=== PATIENT | male | born 1990 | race Caucasian/White ===

== ENCOUNTER 2016-07-30 06:11 | Emergency (ER) | payer SELFPAY ==
[~2016-07-30] VITALS: Ht 190.5 cm; Wt 117.9 kg
--- OUTSIDE RECORDS SUMMARY | 2016-07-30 06:21 | XMS REPORT ---
Author Author STACY VIRK Organization [employer] Address Unknown Phone Unavailable Care Team Providers Care Mail Carrier And Clerk Name Role Phone STACY VIRK CP Unavailable Allergies, Adverse Reactions, Alerts Substance Reaction Event Type N.K.D.A. Info Not Available Non Drug Allergy Problems Problem Type Condition ICD-9 Code Onset Dates Condition Status Assessment Anxiety 300.00 Active Assessment Depression 311 Active Medications Medication Code System Code Instructions Start Date End Date Status Dosage Lexapro [facility] [address]-74 10 MG Orally Once a day Feb 19, 2015 1 tablet Procedures Procedure Coding System Code Date Office Visit, Est Pt., Level 5 CPT-4 90293 Feb 19, 2015 Vital Signs Date/Time: Feb 19, 2015 Temperature 98.6 F Weight 222.9 lbs Height 75.2 in BMI 27.71 Index Blood Pressure Diastolic 85 mmHg Blood Pressure Systolic 165 mmHg Cardiac Monitoring Heart Rate 100 bpm Results No Known Results Summary Purpose [employer] Submission
[2016-07-30 06:48] LABS: BASOPHILS % (AUTO) 0 % (0-10); EOSINOPHILS # (AUTO) 0.1 10^3/uL (0.0-0.3); EOSINOPHILS % (AUTO) 1 % (0-10); LYMPHOCYTES # (AUTO) 1.8 X 10^3 (1.0-4.0); LYMPHOCYTES % (AUTO) 12 % (12-44); MEAN CORPUSCULAR HEMOGLOBIN 31 PG (25-34); MEAN CORPUSCULAR HGB CONC 36 G/DL (32-36); MEAN CORPUSCULAR VOLUME 86 FL (80-99); MEAN PLATELET VOLUME 9.7 FL (7.4-10.4); MONOCYTES # (AUTO) 1.4 X 10^3 (0.0-1.0); MONOCYTES % (AUTO) 10 % (0-12); NEUTROPHILS # (AUTO) 11.1 X 10^3 (1.8-7.8); NEUTROPHILS % (AUTO) 77 % (42-75); PLATELET COUNT 284 10^3/uL (130-400); RED BLOOD COUNT 5.27 10^6/uL (4.35-5.85); RED CELL DISTRIBUTION WIDTH 12.9 % (10.0-14.5); WHITE BLOOD COUNT 14.3 10^3/uL (4.3-11.0)
[2016-07-30 07:04] LABS: ALANINE AMINOTRANSFERASE 18 U/L (0-55); ALBUMIN 4.7 G/DL (3.2-4.5); ANION GAP 14 MMOL/L (5-14); ASPARTATE AMINO TRANSFERASE 17 U/L (5-34); BILIRUBIN,TOTAL 0.5 MG/DL (0.1-1.0); BLOOD UREA NITROGEN 9 MG/DL (7-18); BUN/CREATININE RATIO 9; CALCIUM 9.9 MG/DL (8.5-10.1); CARBON DIOXIDE 22 MMOL/L (21-32); CHLORIDE 106 MMOL/L (98-107); CREATININE SERUM 0.95 MG/DL (0.60-1.30); GFR ESTIMATED > 60; GLUCOSE 87 MG/DL (70-105); POTASSIUM 3.9 MMOL/L (3.6-5.0); SODIUM 142 MMOL/L (135-145); TOTAL PROTEIN 7.3 G/DL (6.4-8.2)
--- NOTE | 2016-07-30 07:18 | ED Integumentary General ---
General Chief Complaint: Skin/Wound Problems Stated Complaint: LUMP ON RT SIDE OF NECK Nursing Triage Note: PT HAS POSS ABSCESS TO RT NECK BELOW EAR ONSET X2-3 DAYS, WORSE THIS AM. DENIES INJURY Source: patient Exam Limitations: no limitations History of Present Illness Time seen by provider: 07:13 Initial Comments The patient is a 26-year-old white male who reports that 2-3 days ago he began to have an area of swelling and tenderness below the right year and at about the angle of the mandible. This is seemed to get worse. He now fears of abscess. He doesn't have any dental complaints although he has not seen a dentist in some years. There is no particular pain when chewing. He has not noted a fever or chills. Timing/Duration: week Location: face Possible Cause: no cause identified Associated Symptoms: change in skin texture Allergies and Home Medications Allergies Coded Allergies: No Known Drug Allergies (Unverified , 07/30/16) Home Medications No Active Prescriptions or Reported Meds Constitutional: see HPI EENTM: ear pain Respiratory: no symptoms reported Cardiovascular: no symptoms reported Gastrointestinal: no symptoms reported Genitourinary: no symptoms reported Musculoskeletal: no symptoms reported Skin: no symptoms reported Psychiatric/Neurological: No Symptoms Reported Endocrine: No Symptoms Reported Hematologic/Lymphatic: No Symptoms Reported Past Ppgcngj-Fynpeh-Wbvcvr Hx Patient Social History Alcohol Use: Denies Use Recreational Drug Use: No Smoking Status: Never a Smoker Type Used: Smokeless Tobacco Recent Foreign Travel: No Contact w/Someone Who Travel: No Recent Infectious Disease Expo: No Recent Hopitalizations: No Surgeries HX Surgeries: No Respiratory Hx Respiratory Disorders: No Cardiovascular Hx Cardiac Disorders: No Neurological Hx Neurological Disorders: No Reproductive System Hx Reproductive Disorders: No Genitourinary Hx Genitourinary Disorders: No Gastrointestinal Hx Gastrointestinal Disorders: No Musculoskeletal Hx Musculoskeletal Disorders: No Endocrine Hx Endocrine Disorders: No HEENT HX ENT Disorders: No Cancer Hx Cancer: No Psychosocial Hx Psychiatric Problems: No Integumentary HX Skin/Integumentary Disorder: No Blood Transfusions Hx Blood Disorders: No Physical Exam Vital Signs Vital Sign - Last 12Hours 07/30/16 06:23 Temp 100.1 Pulse 99 Resp 20 B/P 190/122 Pulse Ox 98 O2 Delivery Room Air Capillary Refill : Less Than 3 Seconds General Appearance: mild distress HEENT: other (dentition appears unremarkable) Neck: other (tender poorly defined area at right angle of mandible which does not appear to be fluctuant) Cardiovascular: normal peripheral pulses regular rate, rhythm no edema no gallop no JVD no murmur Respiratory: chest non-tender lungs clear normal breath sounds no respiratory distress no accessory muscle use Progress/Results/Core Measures Results/Orders Lab Results Laboratory Tests Test 07/30/16 06:30 Range/Units Alanine Aminotransferase (ALT/SGPT) 18 0-55 U/L Albumin 4.7 H 3.2-4.5 G/DL Alkaline Phosphatase 90 40-136 U/L Anion Gap 14 5-14 MMOL/L Aspartate Amino Transf (AST/SGOT) 17 5-34 U/L BUN/Creatinine Ratio 9 Band Neutrophils 0 % Basophils # (Auto) 0.0 0.0-0.1 10^3/uL Basophils % (Manual) 0 % Basophils (%) (Auto) 0 0-10 % Blood Morphology Comment NORMAL Blood Urea Nitrogen 9 7-18 MG/DL Calcium Level 9.9 8.5-10.1 MG/DL Carbon Dioxide Level 22 21-32 MMOL/L Chloride Level 106 98-107 MMOL/L Creatinine 0.95 0.60-1.30 MG/DL Eosinophils # (Auto) 0.1 0.0-0.3 10^3/uL Eosinophils % (Manual) 1 % Eosinophils (%) (Auto) 1 0-10 % Estimat Glomerular Filtration Rate > 60 Glucose Level 87 70-105 MG/DL Hematocrit 45 40-54 % Hemoglobin 16.4 13.3-17.7 G/DL Lymphocytes # (Auto) 1.8 1.0-4.0 X 10^3 Lymphocytes % (Manual) 6 % Lymphocytes (%) (Auto) 12 12-44 % Mean Corpuscular Hemoglobin 31 25-34 PG Mean Corpuscular Hemoglobin Concent 36 32-36 G/DL Mean Corpuscular Volume 86 80-99 FL Mean Platelet Volume 9.7 7.4-10.4 FL Monocytes # (Auto) 1.4 H 0.0-1.0 X 10^3 Monocytes % (Manual) 10 % Monocytes (%) (Auto) 10 0-12 % Neutrophils # (Auto) 11.1 H 1.8-7.8 X 10^3 Neutrophils % (Manual) 83 % Neutrophils (%) (Auto) 77 H 42-75 % Platelet Count 284 130-400 10^3/uL Potassium Level 3.9 3.6-5.0 MMOL/L Red Blood Count 5.27 4.35-5.85 10^6/uL Red Cell Distribution Width 12.9 10.0-14.5 % Sodium Level 142 135-145 MMOL/L Total Bilirubin 0.5 0.1-1.0 MG/DL Total Protein 7.3 6.4-8.2 G/DL White Blood Count 14.3 H 4.3-11.0 10^3/uL My Orders Orders-JONES LEE MD Cbc With Automated Diff (07/30/16 06:26) Comprehensive Metabolic Panel (07/30/16 06:26) Manual Differential (07/30/16 06:30) Ct Neck (Soft Tissue) W (07/30/16 07:06) Iohexol Injection (Omnipaque 350 Mg/Ml 1 (07/30/16 07:45) Sodium Chloride Flush (Catheter Flush Sy (07/30/16 07:45) Ns (Ivpb) (Sodium Chloride 0.9% Ivpb Bag (07/30/16 07:45) Clindamycin 900 Mg/50 Ml Ivpb (Cleocin P (07/30/16 08:30) Medications Given in ED Current Medications Medications Dose Ordered Sig/Corey Route Start Time Stop Time Status Last Admin Dose Admin Clindamycin Phosphate/Dextrose 50 ml @ 100 mls/hr ONCE ONCE IV 07/30/16 08:30 07/30/16 08:59 07/30/16 08:34 100 MLS/HR Iohexol 75 ml ONCE ONCE IV 07/30/16 07:45 07/30/16 07:46 DC 07/30/16 07:47 75 ML Sodium Chloride 100 ml 100 ml ONCE ONCE IV 07/30/16 07:45 07/30/16 07:46 DC 07/30/16 07:47 80 ML Vital Signs/I&O Vital Sign - Last 12Hours 07/30/16 06:23 Temp 100.1 Pulse 99 Resp 20 B/P 190/122 Pulse Ox 98 O2 Delivery Room Air Blood Pressure Mean: 144 Departure Communication Progress Notes Dr. Mei called from radiology to discuss CT findings. The swelling appears to be the distal portion of the right parotid gland. Of particular interest are multiple small air bubbles within the gland suggesting a bacterial infection. [address] Brandt who was scrubbed in in the OR surgery. He recommended Cleocin and would see him in the office the first of the week for further examination Impression Impression: Primary Impression: bacterial parotitis Disposition: HOME, SELF-CARE Condition: Stable/Unchanged Departure-Patient Inst. Decision time for Depature: 08:51 Referrals: MATTHIEU ANDERSON MD (PCP/Family) Primary Care Physician Add. Discharge Instructions: All discharge instructions reviewed with patient and/or family. Voiced understanding Use ibuprofen 6-800 mg 3 times daily for pain. Experimental with ice packs versus warm packs for additional comfort. Take Cleocin as directed If increasing symptoms return to emergency room Call Dr. Brandt's office for an appointment next Wednesday. The number is [phone] Scripts Clindamycin HCl (Cleocin HCl)300 Mg [id number] Mg PO 3 times a day #20 CAP Prov:JONES LEE MD 07/30/16 JONES LEE MD Jul 30, 2016 07:18
[2016-07-30 07:19] LABS: BAND NEUTROPHILS 0 %; BASOPHILS % (MANUAL) 0 %; EOSINOPHILS % (MANUAL) 1 %; LYMPHOCYTES % (MANUAL) 6 %; NEUTROPHILS % (MANUAL) 83 %
[2016-07-30] MEDS ORDERED: CATHETER FLUSH 10 ML SYR IV PRN (07:45)
[2016-07-30] MEDS ORDERED: NS 100 ML (IVPB) BAG IV ONE (07:45)
[2016-07-30] MEDS ORDERED: IOHEXOL 350 MG/ML 100 ML (OMNIPAQUE 350) VIAL IV ONE (07:45)
[2016-07-30] MEDS ORDERED: CLINDAMYCIN 900 MG/50 ML IVPB 50 ML IV ONE (08:30)
--- NOTE | 2016-07-30 08:41 | Diagnostic Imaging Report ---
PROCEDURE: CT neck soft tissue with contrast. TECHNIQUE: Multiple contiguous axial images were obtained through the neck after the administration of contrast. INDICATION: Fever for 2 days. Joint swelling. FINDINGS: There is asymmetric swelling of the right parotid gland with surrounding inflammation and thickening of the overlying fascia. There is subcutaneous deep tissue edema at this level. There is also air density in a branching pattern within the right parotid gland and in the parotid duct. This could be secondary to bacterial infection or less likely retrograde air coming from the oral cavity. If there hasn't been a procedure performed or dilatation to the orifice of the parotid duct, then the source of air is probably an intrinsic bacterial infection. There is complete opacification of the right maxillary sinus, opacification of the anterior and middle right ethmoidal air cells, large opacification of the left sphenoidal sinus and partial opacification of the frontal sinuses bilaterally. There is mild lymphoid hyperplasia in the oropharynx, tonsillar region and the adenoids. There is no abscess. The inflammatory changes however with the fat stranding is seen to extend to the right parapharyngeal space. There is no significant lymphadenopathy. Thyroid gland appear unremarkable. The submandibular glands appear unremarkable. The lung apices appear clear. The osseous structures show mild mid cervical spine degenerative change. IMPRESSION: 1. Swelling and inflammatory changes around the right parotid gland with air density seen in the parotid ducts is likely secondary to right bacterial parotitis. The inflammation extends medially to the peritonsillar and parapharyngeal space with no fluid collection or abscess. 2. Prominent mucosal thickening in the paranasal sinuses may relate to current or prior sinusitis. Findings were discussed with Dr. Schwab at time of dictation. Dictated by: Dictated on workstation # [id number]
[2016-07-30] MEDS ORDERED: CLIN300C3 PO (08:55)
[2016-07-30 09:17] VITALS: BP 145/88
== END 2016-07-30 09:17 | disposition home or self-care (01) ==
LOC: EDUNIT# 06:11 → ER 06:16
DX: K11.21 Acute sialoadenitis (principal)
CPT/HCPCS: 36415; 70491; 80053; 85007; 85027; 96365

== ENCOUNTER 2018-09-20 11:14 | Emergency (ER) | payer SELFPAY ==
[~2018-09-20] VITALS: Ht 190.5 cm; Wt 117.0 kg
[~2018-09-20 11:14] MED LIST changes: -AMLO5TAB4 PO
--- NOTE | 2018-09-20 11:51 | ED Cardiac General ---
History of Present Illness General Chief Complaint: Cardiac/General Problems Stated Complaint: HIGH BP Nursing Triage Note: ARRIVED VIA AMB TO ROOM 07 WITH COMPLAINTS OF HYPERTENSION AFTER BEING CHECKED AT WORK. STATES HE HAS HAD IT IN THE PAST BUT IT WENT DOWN AFTER HE LOST WEIGHT. SCHEDULED TO SEE HIS DR TOMORROW. Source: patient, family, RN notes reviewed Exam Limitations: no limitations History of Present Illness Date Seen by Provider: Sep 20, 2018 Time Seen by Provider: 11:51 Initial Comments Patient presents c/ family c/ c/o his BP is really high. Apparently was checked @ work and sent here for evaluation. States his BP is always high. Use to be on something for it but got off it when he lost weight. Can't remember what he was previously on. Been sometime ago. Denies any associated symptoms, i.e. chest pain, dyspnea, etc. Location: other (denies an pain) Activities at Onset: none Prior CP/Workup: no prior chest pain, no prior cardiac workup Modifying Factors: improves with other (none) NTG SL SENSITIZER: No ASA po SENSITIZER: No Associated Systoms: Denies Symptoms Allergies and Home Medications Allergies Coded Allergies: No Known Drug Allergies (Unverified , 07/30/16) Home Medications Amlodipine Besylate 5 Mg Tablet, 5 MG PO DAILY Prescribed by: SALENA DODGE on 09/20/18 1308 Past Psasyax-Hymobn-Cpulqw Hx Patient Social History Type Used: Smokeless Tobacco Recent Foreign Travel: No Contact w/Someone Who Travel: No Recent Infectious Disease Expo: No Recent Hopitalizations: No Past Medical History Surgeries: No Respiratory: No Cardiac: Yes Hypertension Neurological: No Reproductive Disorders: No Genitourinary: No Gastrointestinal: No Musculoskeletal: No Endocrine: No Cancer: No Did You Recieve Any Treatments: No Psychosocial: No Integumentary: No Blood Disorders: No Physical Exam Vital Signs Vital Signs - First Documented 09/20/18 11:36 Temp 98.0 Pulse 84 Resp 16 B/P (MAP) 203/104 (137) Pulse Ox 98 O2 Delivery Room Air Capillary Refill : Less Than 3 Seconds Height, Weight, BMI Height: 6'3.00" Weight: 258lbs. oz. 117.437541wx; BMI Method:Stated Progress/Results/Core Measures Results/Orders Lab Results Laboratory Tests Test 09/20/18 12:08 4/23/19 12:17 Range/Units Urine Color YELLOW Urine Clarity SLIGHTLY CLOUDY Urine pH 7 5-9 Urine Specific [place] 1.005 L 1.016-1.022 Urine Protein NEGATIVE NEGATIVE Urine Glucose (UA) NEGATIVE NEGATIVE Urine Ketones NEGATIVE NEGATIVE Urine Nitrite NEGATIVE NEGATIVE Urine Bilirubin NEGATIVE NEGATIVE Urine Urobilinogen NORMAL NORMAL MG/DL Urine Leukocyte Esterase NEGATIVE NEGATIVE Urine RBC (Auto) NEGATIVE NEGATIVE Urine RBC RARE /HPF Urine WBC NONE /HPF Urine Squamous Epithelial Cells 0-2 /HPF Urine Crystals NONE /LPF Urine Bacteria NEGATIVE /HPF Urine Casts NONE /LPF Urine Mucus NEGATIVE /LPF Urine Culture Indicated NO White Blood Count 12.4 H 4.3-11.0 10^3/uL Red Blood Count 4.81 4.35-5.85 10^6/uL Hemoglobin 15.4 13.3-17.7 G/DL Hematocrit 43 40-54 % Mean Corpuscular Volume 90 80-99 FL Mean Corpuscular Hemoglobin 32 25-34 PG Mean Corpuscular Hemoglobin Concent 36 32-36 G/DL Red Cell Distribution Width 12.5 10.0-14.5 % Platelet Count 248 130-400 10^3/uL Mean Platelet Volume 9.2 7.4-10.4 FL Neutrophils (%) (Auto) 76 H 42-75 % Lymphocytes (%) (Auto) 14 12-44 % Monocytes (%) (Auto) 10 0-12 % Eosinophils (%) (Auto) 1 0-10 % Basophils (%) (Auto) 0 0-10 % Neutrophils # (Auto) 9.4 H 1.8-7.8 X 10^3 Lymphocytes # (Auto) 1.7 1.0-4.0 X 10^3 Monocytes # (Auto) 1.2 H 0.0-1.0 X 10^3 Eosinophils # (Auto) 0.1 0.0-0.3 10^3/uL Basophils # (Auto) 0.0 0.0-0.1 10^3/uL Sodium Level 142 135-145 MMOL/L Potassium Level 4.0 3.6-5.0 MMOL/L Chloride Level 106 98-107 MMOL/L Carbon Dioxide Level 28 21-32 MMOL/L Anion Gap 8 5-14 MMOL/L Blood Urea Nitrogen 14 7-18 MG/DL Creatinine 0.88 0.60-1.30 MG/DL Estimat Glomerular Filtration Rate > 60 BUN/Creatinine Ratio 16 Glucose Level 80 70-105 MG/DL Calcium Level 10.8 H 8.5-10.1 MG/DL Corrected Calcium 8.5-10.1 MG/DL Magnesium Level 2.2 1.8-2.4 MG/DL Total Bilirubin 0.6 0.1-1.0 MG/DL Aspartate Amino Transf (AST/SGOT) 20 5-34 U/L Alanine Aminotransferase (ALT/SGPT) 22 0-55 U/L Alkaline Phosphatase 55 40-136 U/L Total Protein 7.2 6.4-8.2 GM/DL Albumin 4.7 H 3.2-4.5 GM/DL My Orders Orders - SALENA DODGE DO Chest 1 View, Ap/Pa Only (09/20/18 11:54) Ekg Tracing (09/20/18 11:54) Ed Iv/Invasive Line Start (09/20/18 11:54) Cbc With Automated Diff (09/20/18 11:54) Comprehensive Metabolic Panel (09/20/18 11:54) Magnesium (09/20/18 11:54) Ua Culture If Indicated (09/20/18 11:54) Amlodipine Tablet (Norvasc Tablet) (09/20/18 12:00) Hydralazine Injection (Apresoline Inject (09/20/18 12:00) Hydralazine Injection (Apresoline Inject (09/20/18 13:00) Medications Given in ED Current Medications Medications Dose Ordered Sig/Corey Route Start Time Stop Time Status Last Admin Dose Admin Amlodipine Besylate 5 mg ONCE ONCE PO 09/20/18 12:00 09/20/18 12:18 DC 09/20/18 12:21 5 MG Hydralazine HCl 10 mg ONCE ONCE IV 09/20/18 12:00 09/20/18 12:18 DC 09/20/18 12:23 10 MG Hydralazine HCl 10 mg ONCE ONCE IV 09/20/18 13:00 09/20/18 13:01 DC 09/20/18 13:04 10 MG Vital Signs/I&O 09/20/18 11:36 Temp 98.0 Pulse 84 Resp 16 B/P (MAP) 203/104 (137) Pulse Ox 98 O2 Delivery Room Air Blood Pressure Mean: 137 Departure Impression Primary Impression: Hypertensive urgency Disposition: 01 HOME, SELF-CARE Condition: Improved Departure-Patient Inst. Decision time for Depature: 13:34 Referrals: MATTHIEU ANDERSON MD (PCP/Family) Primary Care Physician Patient Instructions: High Blood Pressure in Adults Scripts Amlodipine Besylate (Norvasc) 5 Mg Tablet 5 MG PO DAILY, #30 TAB 0 Refills Prov: SALENA DODGE DO 09/20/18 SALENA DODGE DO Sep 20, 2018 11:51
[2018-09-20] MEDS ORDERED: hydrALAZINE (APESOLINE) 20 MG/ML VIAL IV ONE ×2 (12:00→13:00)
[2018-09-20] MEDS ORDERED: amLODIPine 5 MG (NORVASC) TAB PO ONE (12:00)
[2018-09-20 12:15] LABS: BILIRUBIN,URINE NEGATIVE (NEGATIVE); CLARITY,URINE SLIGHTLY CLOUDY; COLOR,URINE YELLOW; GLUCOSE, URINE (UA) NEGATIVE (NEGATIVE); KETONES,URINE NEGATIVE (NEGATIVE); LEUKOCYTE ESTERASE ,URINE NEGATIVE (NEGATIVE); NITRITE,URINE NEGATIVE (NEGATIVE); PH,URINE 7 (5-9); PROTEIN,URINE NEGATIVE (NEGATIVE); UROBILINOGEN,URINE NORMAL (NORMAL)
[2018-09-20 12:22] LABS: BASOPHILS % (AUTO) 0 % (0-10); EOSINOPHILS # (AUTO) 0.1 10^3/uL (0.0-0.3); EOSINOPHILS % (AUTO) 1 % (0-10); HEMATOCRIT 43 % (40-54); HEMOGLOBIN 15.4 G/DL (13.3-17.7); LYMPHOCYTES # (AUTO) 1.7 X 10^3 (1.0-4.0); LYMPHOCYTES % (AUTO) 14 % (12-44); MEAN CORPUSCULAR HEMOGLOBIN 32 PG (25-34); MEAN CORPUSCULAR HGB CONC 36 G/DL (32-36); MEAN CORPUSCULAR VOLUME 90 FL (80-99); MEAN PLATELET VOLUME 9.2 FL (7.4-10.4); MONOCYTES # (AUTO) 1.2 X 10^3 (0.0-1.0); MONOCYTES % (AUTO) 10 % (0-12); NEUTROPHILS # (AUTO) 9.4 X 10^3 (1.8-7.8); NEUTROPHILS % (AUTO) 76 % (42-75); PLATELET COUNT 248 10^3/uL (130-400); RED CELL DISTRIBUTION WIDTH 12.5 % (10.0-14.5); WHITE BLOOD COUNT 12.4 10^3/uL (4.3-11.0)
[2018-09-20 12:33] LABS: BACTERIA,URINE NEGATIVE /HPF; RBC,URINE RARE /HPF; SQUAMOUS EPITHELIAL CELL,UR 0-2 /HPF
--- NOTE | 2018-09-20 12:39 | Diagnostic Imaging Report ---
INDICATION: Hypertension. FINDINGS: Heart size and vasculature appeared normal. The lungs are clear. No edema, pneumonia, effusion or pneumothorax. Cardiomediastinal and hilar contours were normal. IMPRESSION: Negative. Dictated by: Dictated on workstation # [id number]
[2018-09-20 12:41] LABS: ALANINE AMINOTRANSFERASE 22 U/L (0-55); ALBUMIN 4.7 GM/DL (3.2-4.5); ALKALINE PHOSPHATASE 55 U/L (40-136); BILIRUBIN,TOTAL 0.6 MG/DL (0.1-1.0); BUN/CREATININE RATIO 16; CALCIUM 10.8 MG/DL (8.5-10.1); CARBON DIOXIDE 28 MMOL/L (21-32); CHLORIDE 106 MMOL/L (98-107); CREATININE SERUM 0.88 MG/DL (0.60-1.30); GFR ESTIMATED > 60; GLUCOSE 80 MG/DL (70-105); MAGNESIUM 2.2 MG/DL (1.8-2.4); SODIUM 142 MMOL/L (135-145); TOTAL PROTEIN 7.2 GM/DL (6.4-8.2)
--- NOTE | 2018-09-20 12:48 | NUR ---
IN ROOM TO TALK TO PT AT THIS TIME
[2018-09-20] MEDS ORDERED: AMLO5TAB4 PO (13:08)
[2018-09-20 13:40] VITALS: BP 181/113
== END 2018-09-20 13:40 | disposition home or self-care (01) ==
LOC: EDUNIT# 11:14 → ER 11:15
DX: I16.0 Hypertensive urgency (principal); I10 Essential (primary) hypertension; F17.200 Nicotine dependence, unspecified, uncomplicated
CPT/HCPCS: 36415; 71045; 80053; 81000; 83735; 85025; 93005

== ENCOUNTER → 2018-09-20 | Outpatient (CLI) | payer SELFPAY ==
[~2018-09-20] MED LIST: AMLO5TAB4 PO; CLIN300C3 PO
== END ==
LOC: ER 12:17
PROVIDERS: ATTEND Family Medicine
DX: I10 Essential (primary) hypertension (principal)
CPT/HCPCS: 36415; 84443